=== PATIENT | female | born 1940 | race Caucasian/White ===

== ENCOUNTER 2017-05-10 11:16 | Outpatient (CLI) | payer OTHER ==
[2017-05-10] MEDS ORDERED: LIDOCAINE 1%, 20 ML MDV 20 ML ONE (12:28)
== END 2017-05-10 19:20 | disposition home or self-care (01) ==
LOC: SMI 11:16
PROVIDERS: ATTEND Specialist
DX: K81.9 Cholecystitis, unspecified (principal); Z46.82 Encounter for fitting and adjustment of non-vascular catheter
CPT/HCPCS: 77012; C1729; J2001